=== PATIENT | male | born 1955 | race Caucasian/White ===

== ENCOUNTER → 2021-10-08 | Outpatient (CLI) | payer MEDICARE ==
[2021-10-08 18:49] LABS: Estimated Average Glucose UNC
[2021-10-08 19:09] LABS: HCT 38.3 % (39.6-50.0); HGB 11.7 g/dL (13.0-17.0); MCH 32.5 pg (27.0-32.0); MCHC 30.5 g/dL (32.0-37.0); MCV 106.4 fL (80.0-97.0); Mean Platelet Volume 11.2 fL (9.5-12.2); NRBC Per 100 WBC 0 /100 WBCS (0.0-0.0); Platelet Count 113 X 10*3/uL (140-440); RDW 13.4 % (11.5-14.5); WBC 3.11 X 10*3/uL (4.50-10.00)
[2021-10-08 19:54] LABS: Estradiol 12.6 pg/mL; Triglycerides 45.2 mg/dL (0.00-149.00)
[2021-10-08 20:07] LABS: Basophils # (A) 0.02 X 10*3/uL (0.00-0.10); Basophils % (A) 0.6 %; Eosinophils # (A) 0.06 X 10*3/uL (0.04-0.35); Eosinophils % (A) 1.9 %; Immature Grans, Automated 0.3 %; Lymphocytes # (A) 0.85 X 10*3/uL (0.90-5.00); Lymphocytes % (A) 27.3 %; Monocytes # (A) 0.25 X 10*3/uL (0.20-1.00); Neutrophils # (A) 1.92 X 10*3/uL (1.80-7.70); Neutrophils % (A) 61.9 %
[2021-10-08 20:08] LABS: Macrocytosis (M) 2+
[2021-10-08 20:22] LABS: Chol/HDL Ratio 1.72 Ratio; LDL Cholesterol,Direct Reflex 35.6 mg/dL (0.00-129.00)
[2021-10-08 20:24] LABS: African American GFR (CKD) 72.1 (60.0-200.0); Anion Gap 10.6 mmol/L (10.00-18.00); BUN/Creat Ratio 17.25 Ratio (12.00-20.00); Blood Urea Nitrogen 20.7 mg/dL (9.0-27.0); Calcium 8.7 mg/dL (8.7-10.3); Carbon Dioxide 23.4 mmol/L (20.0-27.5); Non-African American GFR(CKD) 62.2 (60.0-200.0); Potassium 4.6 mmol/L (3.5-5.5)
== END | disposition home or self-care (01) ==
LOC: LABWHC1 09:53
PROVIDERS: ATTEND Internal Medicine
DX: Z13.1 Encounter for screening for diabetes mellitus (principal); Z13.29 Encounter for screening for other suspected endocrine disorder; Z13.6 Encounter for screening for cardiovascular disorders; I10 Essential (primary) hypertension; E55.9 Vitamin D deficiency, unspecified; E29.1 Testicular hypofunction; E16.1 Other hypoglycemia; N40.0 Benign prostatic hyperplasia without lower urinary tract symptoms; N52.9 Male erectile dysfunction, unspecified; D64.89 Other specified anemias; R63.4 Abnormal weight loss
CPT/HCPCS: 36415; 80048; 80061; 82306; 82670; 83036; 83721; 84402; 84403; 84443; 85025

== ENCOUNTER → 2022-08-30 | Outpatient (CLI) | payer MEDICARE, OTHER ==
--- NOTE | 2022-09-05 08:08 | MR ---
EXAMINATION TYPE: MR ankle RT wo con DATE OF EXAM: 08/30/2022 COMPARISON: No radiographic correlation available. HISTORY: 66-year-old male M25.571,M76.821, Rt ankle pain, swelling, and limited movement TECHNIQUE: Multiplanar, multisequence images of the right ankle were obtained without IV contrast. FINDINGS: There is rupture of the posterior tibial tendon located 2.5 cm proximal to its navicular insertion. T here is an approximate 5 cm tendon gap. Proximally, the tendon is no longer seen at the inferior tip of the medial malleolus. Moderate associated tenosynovial fluid. The remaining medial flexor tendons appear intact. There is s ome increased signal along the deep posterior deltoid ligament fibers which otherwise remain intact. Moderate tenosynovial fluid along the lateral peroneal tendons which otherwise appear intact. Lateral ligamentous complex appears intact. The anterior extensor tendons and syndesmosis appear intact. The tibiotalar joint is intact at least mild degenerative change at the talofibular joint with subcho ndral cystic change and some reactive marrow edema at the inferior tip of the lateral malleolus. There is moderate to large tibiotalar and subtalar joint effusions and associated synovitis. Os sam num shows preserved fatty marrow signal. There is moderate to advanced degenerative change along the subtalar joint and severe degenerative ch casimiro along the medial half of the talonavicular joint. Mild degenerative change medial midfoot involving the medial and middle cuneiform joint. Lisfranc lig ament is visualized and intact. Achilles tendon and origin of the plantar fascia is intact. Small plantar heel spur. Preserved fatty signal within the sinus tarsi. IMPRESSION: 1. Posterior tibial tendon rupture located 2.5 cm proximal to its navicular insertion. Approximately 5 cm long tendon gap. Moderate tenosynovitis. 2. 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 Severe OA medial half of the talonavicular joint. Some addit ional mild degenerative change middle-medial intercuneiform joint. 3. Moderate to large tibiotalar and posterior subtalar joint effusions and moderate synovitis. 4. Grade 1 deep deltoid ligament sprain.
== END | disposition home or self-care (01) ==
LOC: RADMRIMAIN 07:05
PROVIDERS: ATTEND Orthopaedic Surgery Foot and Ankle Surgery
DX: S93.421A Sprain of deltoid ligament of right ankle, initial encounter (principal); M76.821 Posterior tibial tendinitis, right leg; M19.071 Primary osteoarthritis, right ankle and foot; M65.871 Other synovitis and tenosynovitis, right ankle and foot; M25.471 Effusion, right ankle

== ENCOUNTER → 2023-02-21 | Outpatient (CLI) | payer MEDICARE, OTHER ==
[2023-02-21 15:22] LABS: Basophils # (A) 0.03 X 10*3/uL (0.00-0.10); Basophils % (A) 0.7 %; Eosinophils # (A) 0.07 X 10*3/uL (0.04-0.35); Eosinophils % (A) 1.7 %; HGB 10.8 d/dL (13.0-17.0); Lymphocytes # (A) 1.07 X 10*3/uL (0.90-5.00); Lymphocytes % (A) 26.3 %; MCH 30.2 pg (27.0-32.0); MCHC 29.2 d/dL (32.0-37.0); MCV 103.4 FL (80.0-97.0); Mean Platelet Volume 10.6 FL (9.5-12.2); Monocytes # (A) 0.31 X 10*3/uL (0.20-1.00); Monocytes % (A) 7.6 %; NRBC Per 100 WBC 0 X 10*3/uL (0.00-0.01); Neutrophils # (A) 2.58 X 10*3/uL (1.80-7.70); Neutrophils % (A) 63.5 %; Platelet Count 147 X 10*3/uL (140-440); RBC 3.58 X 10*6/uL (4.40-5.60); RDW 15.1 % (11.5-14.5); WBC 4.07 X 10*3/uL (4.50-10.00)
[2023-02-21 15:43] LABS: Ferritin 19.7 ng/mL (22.0-322.0)
[2023-02-21 19:43] LABS: Estimated Average Glucose <74 mg/dL
== END | disposition home or self-care (01) ==
LOC: LABWHC1 08:41
PROVIDERS: ATTEND Internal Medicine
DX: Z13.1 Encounter for screening for diabetes mellitus (principal); D50.8 Other iron deficiency anemias
CPT/HCPCS: 36415; 82607; 82728; 82746; 83036; 84466; 85025

== ENCOUNTER → 2024-04-20 | Outpatient (CLI) | payer MEDICARE, OTHER ==
[2024-04-20 13:30] LABS: HCT 33.7 % (39.6-50.0); HGB 10.6 g/dL (13.0-17.0); MCH 31.7 pg (27.0-32.0); MCHC 31.5 g/dL (32.0-37.0); MCV 100.9 FL (80.0-97.0); Mean Platelet Volume 10.7 FL (9.5-12.2); NRBC Per 100 WBC 0 X 10*3/uL (0.00-0.01); Platelet Count 106 X 10*3/uL (140-440); RBC 3.34 X 10*6/uL (4.40-5.60); RDW 13.2 % (11.5-14.5); WBC 3.81 X 10*3/uL (4.50-10.00)
[2024-04-20 13:41] LABS: ALT 23 U/L (10-49); AST 28 U/L (14-35); Alkaline Phosphatase 105 U/L (41-126); Blood Urea Nitrogen 23.9 mg/dL (9.0-27.0); Calcium 8.7 mg/dL (8.7-10.3); Carbon Dioxide 25.7 mmol/L (21.6-31.8); Chloride 106 mmol/L (96-109); Chol/HDL Ratio 1.52 Ratio; Globulin 1.6 g/dL (1.6-3.3); Glucose 80 mg/dL (70-110); LDL Cholesterol,Calculated 15.2 mg/dL (0.0-131.0); Potassium 4.1 mmol/L (3.5-5.5); Sodium 141 mmol/L (135-145); Total Protein 5.6 g/dL (6.2-8.2); VLDL Calculation 10.86 mg/dL (5.00-40.00)
== END | disposition home or self-care (01) ==
LOC: LABWHC1 07:50
PROVIDERS: ATTEND Internal Medicine
DX: I27.20 Pulmonary hypertension, unspecified (principal); E78.5 Hyperlipidemia, unspecified
CPT/HCPCS: 36415; 80053; 80061; 85027